=== PATIENT | male | born 1970 | race Caucasian/White ===

== ENCOUNTER 2017-06-30 07:37 | Day surgery (SDC) | payer OTHER ==
[2017-06-30 08:09] VITALS: BMI 26.5
[2017-06-30] MEDS ORDERED: Midazolam 2 MG/2 ML VIAL ONE (08:55)
[2017-06-30] MEDS ORDERED: Propofol 10 mg/ml Inj (20 ML) ONE ×2 (08:56→09:02)
[2017-06-30] MEDS ORDERED: Lactated Ringer's 1,000 ML IV SCH (09:15)
--- NOTE | 2017-06-30 09:24 | CP.SDSHP ---
Same Day Surgery H & P - History Proposed Procedure: endoscopy Pre-Op Diagnosis: reflux, esophagitis - Previous Medical/Surgical History Comments: varicose veins - Allergies Allergies: Allergies No Known Allergies Allergy (Verified 06/30/17 08:10) - Physical Exam Vital Signs: Vital Signs 06/30/17 07:49 Temperature 97.6 F Pulse Rate 66 Respiratory 19 Rate Blood Pressure 130/76 O2 Sat by Pulse 100 Oximetry Mental Status: Alert & Oriented x3 Neuro: WNL Heart: WNL Lungs: WNL GI: WNL - {Optional Preform as Required} Abdomen: WNL - Impression Impression: reflux, esophagitis Pt. Evaluated Today:Candidate for Anesthesia & Procedure: Yes - Date & Time Date: 06/30/17 Time: 09:05 Short Stay Discharge - Short Stay Discharge Admitting Diagnosis/Reason for Visit: GASTRO-ESOPHAGEAL REFLUX DISEASE WITHOUT ESOPHAGIT Disposition: HOME/ ROUTINE
[2017-06-30] MEDS ORDERED: Lactated Ringer's 500 ML IV ONE (09:32)
[2017-06-30 09:53] VITALS: TEMP 97.7
[2017-06-30 14:03] VITALS: O2SAT 99
[2017-06-30 14:05] VITALS: BP 117/70; PULSE 88; RESP 12
== END 2017-06-30 14:03 | disposition home or self-care (01) ==
LOC: C.ENDO 07:37
PROVIDERS: ATTEND Internal Medicine Gastroenterology
DX: K21.0 Gastro-esophageal reflux disease with esophagitis (principal); K29.70 Gastritis, unspecified, without bleeding
CPT/HCPCS: 43239; 88305; 88312; 88342; J2001; J2250; J2704; J7120